=== PATIENT | female | born 1945 | race Caucasian/White ===

== ENCOUNTER 2019-10-08 13:59 | Outpatient (RCR) | payer MEDICARE ==
[~2019-10-08 13:59] MED LIST: CLOTRIMAZOLE/BETAMETHASONE 45 GM CR TP ONE
[2019-10-08] MEDS ORDERED: LIDOCAINE VISC 2% SOLN 15 ML UDC ONE (15:26)
[2019-10-08] MEDS ORDERED: CLOTRIMAZOLE/BETAMETHASONE 45 GM CR TP ONE (15:26)
[2019-10-08] MEDS ORDERED: MINERAL OIL/PETROLAT/GLYCERI 6OZ BTL ONE (15:26)
== END 2019-10-18 ==
LOC: WCC 13:59
PROVIDERS: ATTEND Family Medicine
DX: I87.331 Chronic venous hypertension (idiopathic) with ulcer and inflammation of right lower extremity (principal); L97.218 Non-pressure chronic ulcer of right calf with other specified severity; L03.119 Cellulitis of unspecified part of limb; R60.0 Localized edema; B96.89 Other specified bacterial agents as the cause of diseases classified elsewhere; J44.9 Chronic obstructive pulmonary disease, unspecified; Z85.3 Personal history of malignant neoplasm of breast

== ENCOUNTER 2019-11-12 14:45 | Outpatient (RCR) | payer MEDICARE ==
[~2019-11-12 14:45] MED LIST changes: +COLLAGENASE OINTMENT 30 GM TUBE ONE; +LIDOCAINE VISC 2% SOLN 15 ML UDC ONE; +LIDOCAINE/PRILOCAINE 2.5-2.5% KIT ONE; +MUPIROCIN 2% OINT 22 GM TUBE ONE
[2019-11-21] MEDS ORDERED: MUPIROCIN 2% OINT 22 GM TUBE ONE (13:49)
[2019-11-21] MEDS ORDERED: LIDOCAINE VISC 2% SOLN 15 ML UDC ONE (13:49)
== END 2019-11-18 ==
LOC: WCC 14:45
PROVIDERS: ATTEND Family Medicine
DX: I87.331 Chronic venous hypertension (idiopathic) with ulcer and inflammation of right lower extremity (principal); I87.332 Chronic venous hypertension (idiopathic) with ulcer and inflammation of left lower extremity; L97.218 Non-pressure chronic ulcer of right calf with other specified severity; L97.821 Non-pressure chronic ulcer of other part of left lower leg limited to breakdown of skin; L03.119 Cellulitis of unspecified part of limb; R60.0 Localized edema; J44.9 Chronic obstructive pulmonary disease, unspecified; B96.89 Other specified bacterial agents as the cause of diseases classified elsewhere; Z85.3 Personal history of malignant neoplasm of breast

== ENCOUNTER 2019-11-21 14:33 | Outpatient (RCR) | payer MEDICARE | END 2019-12-18 | LOC: WCC 14:33 | PROVIDERS: ATTEND Family Medicine | DX: I87.331 Chronic venous hypertension (idiopathic) with ulcer and inflammation of right lower extremity (principal); I87.332 Chronic venous hypertension (idiopathic) with ulcer and inflammation of left lower extremity; L03.119 Cellulitis of unspecified part of limb; L97.821 Non-pressure chronic ulcer of other part of left lower leg limited to breakdown of skin; L97.218 Non-pressure chronic ulcer of right calf with other specified severity; R60.0 Localized edema; B96.89 Other specified bacterial agents as the cause of diseases classified elsewhere; J44.9 Chronic obstructive pulmonary disease, unspecified; Z85.3 Personal history of malignant neoplasm of breast ==

== ENCOUNTER 2019-11-24 12:31 | Inpatient (IN) | payer MEDICARE ==
[~2019-11-24] VITALS: Ht 154.9 cm; Wt 83.5 kg
--- OUTSIDE RECORDS SUMMARY | 2019-11-24 12:34 | XMS REPORT ---
Author Author [facility] Address Unknown Phone Unavailable Care Team Providers [facility] Name Role Phone Unavailable Unavailable Payers Payer Name Policy Type Policy Number Effective Date Expiration Date Problems This patient has no known problems. Allergies, Adverse Reactions, Alerts Allergy Name Allergy Type Status Severity Reaction(s) Onset Date Inactive Date Treating Clinician Comments No Known Allergies DA Active U 2019-09-05 00:00:00 No Known Allergies DA Active U 2019-07-11 00:00:00 No Known Allergies DA Active U 2015-10-07 00:00:00 Medications This patient has no known medications. Results Test Description Test Time Test Comments Text Results Atomic Results Result Comments - XR CHEST 1 V 2019-09-08 09:58:00 FAX: Stone Flowers III [phone] [place]: St: REG FAX: Latoya Cruz MD [phone] Name: QI BALL CONSUELO [facility] : 1945 Age/S: 74/F [address] [place] [address] Unit #: [id number] Loc: [place] [address] Phys: Latoya Umaña MD Acct: [id number] Dis Date: Status: REG [facility]ONE #: [phone] Exam Date: 09/08/2019 09 FAX #: [phone] Reason: port placement EXAMS: CPT CODE: [id number] XR CHEST 1 V 65846 Portable chest performed September 08, 2019 0851 hours. COMPARISON: September 05, 2019. CLINICAL HISTORY: port placement. DISCUSSION: Single portable chest is submitted. Study is rotated. Right IJ Port-A-Cath is present with the tip over the cavoatrial junction.. Cardiothymic silhouette is normal in size. Density is seen projected over the left lower lobe, likely related to patient's chest wall disease. Given the limitations of the study, the lungs appear clear of acute process. Chronic changes are seen in the left humeral head, compatible with prior trauma IMPRESSION: 1. Right IJ Port-A-Cath is present with the tip over the cavoatrial junction. 2. Density seen projected over the left lower chest wall, likely related to patient's known chest wall disease. 3. Chronic changes in the left shoulder at 0947 Reported and signed by: Georgiana Ricks M.D. CC: Stone Riggs III, MD; In Elvia Umaña Technologist: Samara Jacques RT(R) Trnscrd Date/Time/By: 09/08/2019 (3850) : By: RainerNMG Orig Print D/T: S: 09/08/2019 (1862) PAGE 1 Signed Report - XR FLUOROSCOPY 0-60 MIN 2019-09-08 09:00:00 FAX: Stone Flowers III [phone] [place]: St: REG FAX: Latoya Cruz MD [phone] Name: QI BALL [facility] Breana Joseph : 1945 Age/S: 74/F [address] [place] [address] Unit #: [id number] Loc: [place] [address] Phys: Latoya Umaña MD Acct: [id number] Dis Date: Status: REG [facility] [place] PHONE #: [phone] Exam Date: 09/08/2019813 FAX #: [phone] Reason: LT BREAST CANCER EXAMS: CPT CODE: [id number] XR FLUOROSCOPY 0-60 MIN 81561 Intraprocedural fluoroscopy was provided by the Department of Radiology. Any images obtained were interpreted by the Surgeon intraoperatively. Total estimated active fluoroscopy time was approximately 1.6 seconds. Number of images: 2. Dose (Air Kerma): 0.14 mGy SL: [id number] at 0900 Reported and signed by: Jeramy Negron M.D. CC: Stone Riggs III, MD; In Elvia Umaña Techno logist: RT Roxana(R) Trnscrd Date/Time/By: 09/08/2019 (09) : By: [email or web address] Orig Print D/T: S: 09/08/2019 (0903) PAGE 1 Signed Report DRUGS OF ABUSE SCREEN 2019-09-05 15:46:00 URN COCAINE (test code=COCAURN) NEGATIVE NEGATIVE URN CANNABINOIDS (test code=CANNABURN) NEGATIVE NEGATIVE URN AMPHETAMINE (test code=AMPHETURN) NEGATIVE NEGATIVE URN BARBITURATE (test code=BARBITURN) NEGATIVE NEGATIVE URN BENZODIAZEPINE (test code=BENZOURN) NEGATIVE NEGATIVE Cut-off value:200 ng/mL URN OPIATES (test code=OPIATURN) NEGATIVE NEGATIVE Cut-off value:2000 ng/mL URN PHENCYCLIDINE (PCP) (test code=PHENCURN) NEGATIVE NEGATIVE Cutoffs:Barbiturates 200 ng/mLBenzodiazepines 200 ng/mLTHC Cannabinoids 50 ng/mLOpiates(Morphine) 2000 ng/mLAmphetamine 1000 ng/mLCocaine 300 ng/mLPCP phencyclidine 25 ng/mL Unconfirmed screening results shouldnot be used for non-medical purposes. - XR CHEST 2 [id number] 15:06:00 FAX: Stone Flowers III [phone] [place]: St: PRE FAX: Y LeeroyLatoya Gan MD [phone] Name: QI BALL [facility] : 1945 Age/S: 74/F [address] [place] [address] Blvd Unit #: [id number] Loc: [place] [address] Phys: Yo,Latoya Gan MD Acct: [id number] Dis Date: Status: PRE [facility] PHONE #: [phone] Exam Date: 09/05/2019 1425 FAX #: [phone] Reason: PRE-OP PORT PLACEMENT EXAMS: CPT CODE: [id number] XR CHEST 2 V 93008 EXAM: PA and lateral chest. EXAM DATE: September 05, 2019 CLINICAL HISTORY: PRE-OP PORT PLACEMENT COMPARISON: October 07, 2015 at 1712 hours Heart size is stable compared to the prior exam and is grossly within normal limits. Atherosclerotic calcifications and tortuosity of the intrathoracic aorta is identified.. Mild increased interstitial markings appear stable. .Kyphosis is identified. There is irregularity in the left humeral head palpable with previously identified fracture. IMPRESSION: No acute abnormality identified. at 1504 Reported and signed by: Jessica Dawson M.D. CC: Stone Riggs III, MD; In Elvia Yo Technologist: RT Beatriz(R) Trnscrd Date/Time/By: 08/20 (8279) : By: José Orig Print D/T: S: 09/05/2019 (0060) PAGE 1 Signed Report COMPREHENSIVE METABOLIC [id number] 14:26:00* Test Item Value Reference Range Comments SODIUM (test code=NA) 138 mEq/L 134-147 POTASSIUM (test code=K) 4.5 mEq/L 3.4-5.0 CHLORIDE (test code=CL) 101 mEq/L 100-108 CARBON DIOXIDE (test code=CO2) 32 mEq/L 21-33 ANION GAP (test code=GAP) 10 0-20 GLUCOSE (test code=GLU) 84 mg/dL 70-110 BLOOD UREA NITROGEN (test code=BUN) 20 mg/dL 7-18 GLOMERULAR FILTRATION RATE (test code=GFR) 61.5 70-80 Units of measure=ml/min/1.73 m2 CREATININE (test code=CREAT) 0.9 mg/dL 0.6-1.3 TOTAL PROTEIN (test code=PROT) 7.5 g/dL 6.4-8.2 ALBUMIN (test code=ALB) 3.60 g/dL 3.4-5.0 CALCIUM (test code=CA) 9.0 mg/dL 8.0-10.5 BILIRUBIN TOTAL (test code=BILT) 0.3 MG/DL <1.5 SGOT/AST (test code=AST) 22 IUnit/L 15-37 SGPT/ALT (test code=ALT) 19 IUnit/L 15-65 ALKALINE PHOSPHATASE TOTAL (test code=ALKP) 91 IUnit/L 20-125 CBC W/AUTO [id number] 14:11:00* Test Item Value Reference Range Comments WHITE BLOOD CELL (test code=WBC) 8.17 x10 3/uL 4.5-11.0 RED BLOOD CELL (test code=RBC) 4.55 x10 6/uL 3.54-5.02 HEMOGLOBIN (test code=HGB) 13.9 g/dL 11.0-15.0 HEMATOCRIT (test code=HCT) 42.9 % 33.0-45.0 MEAN CELL VOLUME (test code=MCV) 94.3 fL 81.0-99.0 MEAN CELL HGB (test code=MCH) 30.5 pg 27.0-33.0 MEAN CELL HGB CONCETRATION (test code=MCHC) 32.4 g/dL 33.0-37.0 RED CELL DISTRIBUTION WIDTH CV (test code=RDW) 14.6 % 11.5-14.5 RED CELL DISTRIBUTION WIDTH SD (test code=RDW-SD) 50.8 fL 37.0-54.0 PLATELET COUNT (test code=PLT) 369 x10 3/uL 150-400 MEAN PLATELET VOLUME (test code=MPV) 9.9 fL 7.0-9.0 NEUTROPHIL % (test code=NT%) 78.0 % 56.0-77.0 IMMATURE GRANULOCYTE % (test code=IG%) 0.2 % 0.0-2.0 LYMPHOCYTE % (test code=LY%) 10.3 % 14.0-32.0 MONOCYTE % (test code=MO%) 9.3 % 4.8-9.0 EOSINOPHIL % (test code=EO%) 1.2 % 0.3-3.7 BASOPHIL % (test code=BA%) 1.0 % 0.0-2.0 NUCLEATED RBC % (test code=NRBC%) 0.0 % 0-0 NEUTROPHIL # (test code=NT#) 6.37 x10 3/uL 2.0-7.6 IMMATURE GRANULOCYTE # (test code=IG#) 0.02 x10 3/uL 0.00-0.03 LYMPHOCYTE # (test code=LY#) 0.84 x10 3/uL 1.0-3.8 MONOCYTE # (test code=MO#) 0.76 x10 3/uL 0.1-0.8 EOSINOPHIL # (test code=EO#) 0.10 x10 3/uL 0.0-0.2 BASOPHIL # (test code=BA#) 0.08 x10 3/uL 0.0-0.2 NUCLEATED RBC # (test code=NRBC#) 0.00 x10 3/uL 0.0-0.1 MANUAL DIFF REQUIRED (test code=MDIFF) NO SURGICAL [id number] 16:50:00 RUN DATE: 07/18/19 [facility] *LIVE* PAGE 1 RUN TIME: 1650 Specimen Inqui ry RUN USER: INTERFACE PATIENT: QI BALL ACCT #: G [id number] LOC: [place] U #: [id number] AGE/SX: 74/F ROOM: RE07/14/19[facility] DR: Hair Warren MD : [birth year] BED: DIS: STATUS: [place] [facility] TLOC: SPEC #: [id number] RECD: 07/14/19 STATUS: LAMAR BUCK #: [id number] JERRI: 07/14/19 [facility] DR: Hair Warren MD ENTERED: 07/17/19 SP TYPE: SURG SPEC OTHR DR: Stone Riggs III, MD ORDERED: GM LEVEL 4 CODES: [id number] - SOFT TISSUES, N COPIES TO: Hair Warren MD [address] [place] [address] [place] [address] [place] [address] PROCEDURES: GM LEVEL 4 (Incomplete) TISSUES: 1. SOFT TISSUES, NOS - Soft tissue, left chest wall, TNB FINAL DIAGNOSIS Soft tissue, left chest wall, TNB: Adenocarcinoma most consistent with primary from [facility]. GROSS AND MICROSCOPIC INTRAOPERATIVE CONSULT (DR): Adequate for c ytologic evaluation. GROSS EXAMINATION: Received are 3 direct smears for evaluation for adequacy during the operative procedure. They are determin ed to be adequate for cytologic evaluation. Also received is residual mat erial that measures up to 1.1 cm in length and 0.1 cm in diameter. Entirely submitted. MICROSCOPIC EXAMINATION: The biopsy of the left chest wall reveal replacement by carcinoma. Immunostains for CK7, ER, and NM are positive. Immunostains for CDX 2, GCDFP, CK20, and TTF1 are negative. (W hen special stains have been reviewed, the appropriate positive/negative con trols have been reviewed and are appropriately positive/negative). These muñiz ges are most consistent with a primary carcinoma from breast. CONTINUED ON NEXT PAGE --------- ---RUN DATE: 07/18/19 [facility] *LIVE* PAGE 2 RUN TIME: 1650 Specimen Inquiry RUN USER: INTERFACE SPEC #: [id number] PATIENT: QI BALL CONSUELO #[id number] (Continued) POST-OP DIAGNOSIS Met astatic breast cancer PRE-OP DIAGNOSIS Metastatic breast cancer REVIEWED BY: Signed SIGNATURE ON FILE Brittney Yang MD 07/18/19 1650 END OF REPORT SURGICAL SPECIMENS 2019-07-18 16:50:00 RUN DATE: 08/01/19 [facility] *LIVE* PAGE 1 RUN TIME: 1618 Specimen Inqui ry RUN USER: INTERFACE PATIENT: QI BALL CONSUELO ACCT #: G [id number] LOC: TaneshaToñaALEXANDROU U #: [id number] AGE/SX: 74/F ROOM: RE07/14/19REG DR: Hair Warren MD : [birth year] BED: DIS: STATUS: [facility] TLOC: SPEC #: [id number] RECD: 07/14/19 STATUS: LAMAR BUCK #: [id number] JERRI: 07/14/[address] [facility] [address]: Hair Warren MD ENTERED: 07/17/19 SP TYPE: SURG SPEC OTHR DR: Stone Riggs III, MD ORDERED: GM LEVEL 4 CODES: [id number] - SOFT TISSUES, N COPIES TO: Hair Warren MD [address] [place] [address] [place] [address] [place] [address] [phone] PROCEDURES: GM LEVEL 4 (Incomplete) TISSUES: 1. SOFT TISSUES, NOS - Soft tissue, left chest wall, TNB ADDENDUM FINDINGS Addendum #1 Entered: 07/29/19 ER: POSITIVE Tumor Stained: 100% Intensity: 3+ Faye Score: 8 PgR: POSITIVE Tumor Stained: 21% Intensity: 1+ Faye Score: 4 HER2 Breast: EQUIVOCAL Score: 2+ Percentage of Cells with Uniform Intense Complete Membrane Stainin% , FISH PENDING. Ki67: HIGH Tumor Stained: 80% Intensity: 3+ p53: POSITIVE Tumor Stained: 98% Intensity: 1+ REFERENCE RANGES: ER > 1%-Positive; < 1%-Negative. NM > 1%-Positive; < 1%- Negative. Ki-67 < 10%-Low proliferative index; >=10% and <=20%-Intermediate proliferative index; > 20%-High proliferative index. p53 < 10%-Negative; > =10%-Positive. Her2/alanna 1-9-Gawcmqfp; 0-otlvrsvog-felomi FISH study; 3+-Posit chalo. These tests were performed by IHC in conjunction with the [employer]ope[employer]/APERIO. The material was formalin fixed (6-72 hours), paraffin CONTINUED ON NEXT PAGE RUN DATE: 08/01/19 [facility] *LIVE* PAGE 2 RUN TIME: 1618 Specimen Inquiry RUN USER: INTERFACE SPEC #: [id number] PATIENT: QI BALL CONSUELO #[id number] (Continued)--------- --- ADDENDUM FINDINGS (Continued) embedded. While some antibo dies have not been approved by the FDA, clearance/approval is not conrad frederick. These antibodies are well documented and clinically accepted prognostic indicators. Known positive and negative control tissue shows appropriate stai ren. Above prognostic marker results to be used in context with clinical/path ological findings. The [employer] of [place] [employer] (CAP) and the [place] Society of Clinical Oncology (ASCO) joint guideline on testing for Her2/Alanna status in invasive breast cancer is used to determine if FISH studies are n ecessary. Please see outside consultation report for clone/intended use, vendor, staining pattern, and QC status. Addendum Signed SIGNATURE ON FILE Aarti Yang MD 08/01/19 1618 FINAL DIAGNOSIS Soft tissue, le ft chest wall, TNB: Adenocarcinoma most consistent with primary from breast. GROSS AND MICROSCOPIC INTRAOPERATIVE CONSULT (): Adequate for cytolo gic evaluation. GROSS EXAMINATION: Received are 3 direct smears for e valuation for adequacy during the operative procedure. They are determined to be adequate for cytologic evaluation. Also received is residual material that measures up to 1.1 cm in length and 0.1 cm in diameter. Entirely submi tted. MICROSCOPIC EXAMINATION: The biopsy of the left chest wall rev eal replacement by carcinoma. Immunostains for CK7, ER, and NM are p ositive. Immunostains for CDX 2, GCDFP, CK20, and TTF1 are negative. (When s pecial stains have been reviewed, the appropriate positive/negative controls have been reviewed and are appropriately positive/negative). These changes a re most consistent with a primary carcinoma from breast. POST-OP DIAGNOSIS Metastatic breast cancer PRE-OP DIAGNOSIS Metastatic breast cancer CONTINUED ON NEXT PAGE RUN DATE: 08/01/19 [facility] *LIVE* PAGE 3 RUN TIME: 1618 S terry Inquiry RUN USER: INTERFACE SPEC #: [id number] PATIENT: QI BALL CONSUELO #[id number] (Continued) REVIEWED BY: Signed SIGNATURE ON FILE Brittney Yang MD 07/18/19 1650 END OF REPORT SURGICAL [id number] 16:50:00 RUN DATE: 08/05/19 [facility] *LIVE* PAGE 1 RUN TIME: 1040 Specimen Inqui ry RUN USER: INTERFACE PATIENT: QI BALL ACCT #: G [id number] LOC: [place] U #: [id number] AGE/SX: 74/F ROOM: RE07/14/19REG DR: Hair Warren MD : [birth year] BED: DIS: STATUS: [facility]LOC: SPEC #: [id number] RECD: 07/14/19 STATUS: LAMAR CIELO #: [id number] JERRI: 07/14/[address] [facility] [address]: Hair Warren MD ENTERED: 07/17/19 SP TYPE: SURG SPEC OTHR DR: Stone Riggs III, MD ORDERED: GM LEVEL 4 CODES: [id number] - SOFT TISSUES, N COPIES TO: Hair Warren MD [address] [place] [address] [place] [address] [place] [address] PROCEDURES: GM LEVEL 4 (Incomplete) TISSUES: 1. SOFT TISSUES, NOS - Soft tissue, left chest wall, TNB ADDENDUM FINDINGS Addendum #2 Entered: 08/04/19-2823 FISH FOR HER2: Positive. See outside report from [employer] for complete details. Addendum Signed SIGNATURE ON FILE Brittney Cortes MD 08/05/19 1040 Addendum #1 Entered: 07/29/19-163 ER: POSITIVE Tumor Stained: 100% Intensity: 3+ Faye Score: 8 PgR: POSITIVE Tumor Stained: 21% Intensity: 1+ Faye Score: 4 HER2 Breast: EQUIVOCAL Score: 2+ Percentage of Cells with Uniform Intense Complete Membrane Stainin% , FISH PENDING. Ki67: HIGH Tumor Stained: 80% Intensity: 3+ CONTINUED ON NEXT PAGE RUN DATE: 9 [facility] *LIVE* PAGE 2 RUN T JALEESA: 1040 Specimen Inquiry RUN USE R: INTERFACE --------- ---SPEC #: [id number] PATIENT: LIZZYHETALQIIVETTE CORDERO #[id number] (Continued) ADDENDUM FINDINGS (Continued) p53: PO SITIVE Tumor Stained: 98% Intensity: 1+ REFERENCE RAN GES: ER > 1%-Positive; < 1%-Negative. NM > 1%-Positive; < 1%-Negative. Ki- 67 < 10%-Low proliferative index; >=10% and <=20%-Intermediate proliferative index; > 20%-High proliferative index. p53 < 10%-Negative; >=10%-Positive. Her2/alanna 8-5-Fwezrzpg; 2-mgetvzxit-burtcw FISH study; 3+-Positive. These tests were performed by IHC in conjunction with the [employer]/APERIO. The material was formalin fixed (6-72 hours), paraffin embedded. While some antibodies have not been approved by the FDA, clearance/approval is not mandated. These antibodies are well documented and clinically accepted prognostic ind icators. Known positive and negative control tissue shows appropriate staining . Above prognostic marker results to be used in context with clinical/patholog ical findings. The College of [employer] Pathologists (CAP) and the [place] [employer] ciety of Clinical Oncology (ASCO) joint guideline on testing for Her2/Alanna sta tus in invasive breast cancer is used to determine if FISH studies are neces connie. Please see outside consultation report for clone/intended use, vend or, staining pattern, and QC status. Addendum Signed SIGNATURE ON FILE Brittney Yang MD 08/01/19 1618 FINAL DIAGNOSIS Soft tissue, left c hest wall, TNB: Adenocarcinoma most consistent with primary from breast. GROSS AND MICROSCOPIC INTRAOPERATIVE CONSULT (): Adequate for cytologic evaluation. GROSS EXAMINATION: Received are 3 direct smears for evalu ation for adequacy during the operative procedure. They are determined to be adequate for cytologic evaluation. Also received is residual material marcus t measures up to 1.1 cm in length and 0.1 cm in diameter. Entirely submitted . MICROSCOPIC EXAMINATION: The biopsy of the left chest wall reveal replacement by carcinoma. Immunostains for CK7, ER, and NM are posit chalo. Immunostains for CDX 2, GCDFP, CK20, and TTF1 are negative. (When speci al stains have been reviewed, the appropriate positive/negative controls hav e been reviewed and are appropriately positive/negative). These changes are most consistent with a primary carcinoma from breast. CONTINUED ON NEXT PAGE RUN DATE : 08/05/19 [facility] *LIVE* PAGE 3 RUN TIME: 1040 Specimen Inquiry RUN USER: INTERFACE SPEC #: [id number] PATIENT: QI BALL CONSUELO #G [id number] (Continued) POST-OP DIAGNOSIS Metastatic gail ast cancer PRE-OP DIAGNOSIS Metastatic breast cancer REVIEW ED BY: Signed SIGNATURE ON FILE Brittney Yang MD 07/18/19 1650 END OF REPORT - [facility] GUID [facility] (Biopsy/Asp) 2019-07-14 14:49:00 Name: QI BALL [facility] : 1945 Age/S: 74 / F [address] [place] [address] Unit #: [id number] Loc: [place] [address] Phys: Hair Warren MD Acct: [id number] Dis Date: Status: REG [facility] PHONE #: [phone] Exam Date: 07/14/2019 1301 FAX #: [phone] Reason: METASTATIC BREAST CANCER EXAMS: CPT CODE: [id number] CT [facility]UID [facility] (Biopsy/Asp) [address] PROCEDURE: CT-guided left chest wall mass biopsy. INDICATION: Breast cancer with hypermetabolic left lower chest wall mass. COMPARISON: PET/CT dated 06/24/2019. TECHNICAL: CT imaging performed at this location utilizes radiation dose optimization techniques which include one or more of the following: -Automated exposure control -Adjustment of the mA and/or kV according to patient size - Use of iterative reconstruction technique CT Radiation Dose DLP 599.1 mGy- cm MODERATE SEDATION: Moderate sedation was not administered. The patient was monitored by nurse using automated blood pressure, EKG and pulse oximetry. The moderate sedation record is permanently stored in the hospital information system. The personal supervised moderate sedation time was 0 minutes. Medications administered: 0 mg of IV Versed and 0 micrograms of IV Fentanyl. PROCEDURE: The procedure, risks, benefits, and alternatives were discussed. Informed consent was obtained. Timeout was performed prior to the procedure. Preliminary CT images were acquired. The left lower lateral chest wall was prepped and draped in usual sterile fashion. Local anesthesia achieved with 1% lidocaine. Under intermittent CT fluoroscopic guidance, a 17-gauge coaxial needle was advanced into the identified left chest wall mass. Through the coaxial needle, 3 x 18-gauge by 2 cm core biopsy specimens were acquired. Biopsy specimens were submitted to pathology and were deemed adequate. Needle was removed and final CT images were acquired. A sterile dressing was applied. FINDINGS: Preliminary CT images show soft tissue thickening of the left inferolateral chest wall corresponding with hypermetabolic soft tissue PAGE 1 Signed Report (CONTINUED) Name: QI BALL [facility] : 1945 Age/S: 74 / F [address] [place] [address] Unit #: [id number] Loc: [place] [address] Phys: Hair Warren MD Acct: [id number] Dis Date: Status: REG [facility] PHONE #: [phone] Exam Date: 07/14/2019 1309 FAX #: [phone] Reason: METASTATIC BREAST CANCER EXAMS: CPT CODE: [id number] [facility] (Biopsy/Asp) [address]25[address] <Continued> lesion from outside PET. Subsequent CT images show biopsy needle being advanced into the lesion. Final CT images show no pneumothorax or other complication. A few locules of gas are seen with in the soft tissue lesion. IMPRESSION: Status post CT-gu ided core biopsy of hypermetabolic left inferolateral chest wall soft ti ssue lesion. at 1449 Reported and signed by: Mike Castro M.D. CC: Hair Warren MD; Stone Riggs III, MD Technologist:Rl tian RT(R) CTDI: DLP: Trnscb Date/Time: 07/14/2019 (1449) t .SDR.KM28 Orig Print D/T: S: 07/14/2019 (0406) PAGE 2 Signed Report CBC W/AUTO [id number] 10:04:00* Test Item Value Reference Range Comments WHITE BLOOD CELL (test code=WBC) 12.72 x10 3/uL 4.5-11.0 RED BLOOD CELL (test code=RBC) 4.49 x10 6/uL 3.54-5.02 HEMOGLOBIN (test code=HGB) 13.9 g/dL 11.0-15.0 HEMATOCRIT (test code=HCT) 44.1 % 33.0-45.0 MEAN CELL VOLUME (test code=MCV) 98.2 fL 81.0-99.0 MEAN CELL HGB (test code=MCH) 31.0 pg 27.0-33.0 MEAN CELL HGB CONCETRATION (test code=MCHC) 31.5 g/dL 33.0-37.0 RED CELL DISTRIBUTION WIDTH CV (test code=RDW) 13.8 % 11.5-14.5 RED CELL DISTRIBUTION WIDTH SD (test code=RDW-SD) 50.1 fL 37.0-54.0 PLATELET COUNT (test code=PLT) 335 x10 3/uL 150-400 MEAN PLATELET VOLUME (test code=MPV) 10.1 fL 7.0-9.0 NEUTROPHIL % (test code=NT%) 84.8 % 56.0-77.0 IMMATURE GRANULOCYTE % (test code=IG%) 0.4 % 0.0-2.0 LYMPHOCYTE % (test code=LY%) 5.7 % 14.0-32.0 MONOCYTE % (test code=MO%) 8.0 % 4.8-9.0 EOSINOPHIL % (test code=EO%) 0.6 % 0.3-3.7 BASOPHIL % (test code=BA%) 0.5 % 0.0-2.0 NUCLEATED RBC % (test code=NRBC%) 0.0 % 0-0 NEUTROPHIL # (test code=NT#) 10.80 x10 3/uL 2.0-7.6 IMMATURE GRANULOCYTE # (test code=IG#) 0.05 x10 3/uL 0.00-0.03 LYMPHOCYTE # (test code=LY#) 0.72 x10 3/uL 1.0-3.8 MONOCYTE # (test code=MO#) 1.02 x10 3/uL 0.1-0.8 EOSINOPHIL # (test code=EO#) 0.07 x10 3/uL 0.0-0.2 BASOPHIL # (test code=BA#) 0.06 x10 3/uL 0.0-0.2 NUCLEATED RBC # (test code=NRBC#) 0.00 x10 3/uL 0.0-0.1 MANUAL DIFF REQUIRED (test code=MDIFF) NO PROTHROMBIN [id number] 07:40:00* Test Item Value Reference Range Comments PROTHROMBIN TIME PATIENT (test code=PTP) 11.2 SECONDS 9.3-12.9 INTERNATIONAL NORMAL RATIO (test code=INR) 1.0 0.8-1.2 TARGET INR BY INDICATION Indication INR1. Prophylaxis of venous thrombosis 2.0 - 3.0 (orthopedic surgery), Prophylaxis of venous thrombosis (other than high-risk surgery), Treatment of Deep Vein Thrombosis/Pulmonary Embolism, Prevention of systemic embolism - Tissue heart valves, Acute Myocardial Infarction (to prevent systemic embolism), Valvular heart disease, Atrial Fibrillation, Bileaflet mechanical valve in aortic position.2. Mechanical prosthetic valves (high risk), 2.5 - 3.5 Presence of Lupus Anticoagulant or Antiphospholipid Antibodies, Prevention of systemic embolism - Acute Myocardial Infarction (to prevent recurrent infarct). THROMBOPLASTIN TIME [id number] 07:40:00* Test Item Value Reference Range Comments THROMBOPLASTIN TIME PARTIAL (test code=PTT) 27.3 Seconds 25.0-39.5 Therapeutic Range: 50.4 - 88.3 Seconds Effective 12/03/2018 - MRI BRAIN WO/W [id number] 15:12:00 FAX: Hair Tejeda MD [phone] [place]: St: REG Name: QI VILLARREAL [facility] : [birth year] Age/S: 74/F [address] [place] [address] Unit #: [id number] Loc: [place] [address] Phys: Hair Warren MD Acct: [id number] Dis Date: Status: REG CLI PHONE #: [phone] Exam Date: 06/23/2019 1341 FAX #: [phone] Reason: C50.412/C50.919 BREAST CA EXAMS: CPT CODE: [id number] MRI BRAIN WO/W CONT [id number] Study: - MRI BRAIN WO/W CONT 06/23 12:16 PM Patient Name: QI BALL MR: [id number] : 1945; Age: 74 years y/o Female Ordering Physician: Hair Warren MD Clinical Indication: C50.412/C50.919 BREAST CA C omparison: None TECHNIQUE: TECHNIQUE: Multiplanar precontrast and postcontrast MRI of the brain was performed on a 1.5 Tracy magnet. Contrast: Dotarem 18 mL FINDINGS: BRAIN PARE NCHYMA: General: The brain volume and ventricle size are appropria te for age. Focal DWI hyperintensity with equivocal ADC signal in the rig ht occipital lobe (series 4 image 17). Scattered FLAIR hyperintensit ies in the supratentorial white matter likely represent chronic small vess el ischemic changes. Ventricles: Normal size and appearance. Enhancement: No abnormal enhancement. Acute Findings: No evidence of acute intracranial hemorrhage, mass, mass effect, midline love ft, or extra-axial fluid collection. Diffusion Weighted Images: No evidence of restricted diffusion to suggest acute or subacute ischemia. Gradient Images: No abnormal hypointense signal to suggest old hemorrhage. Midline Structures: An empty sella is present. The remaining midline structures are normal. VASCULATURE: Arterial: The major intracranial arterial flow voids are present. Jm ous: The dural venous sinus flow voids are grossly normal. PAGE 1 Signed Report (CONTINUED) FAX: Hair Tejeda MD [phone] [place]: St: REG Name: QI BALL [facility] : 1945 Age/S: 74/F [address] [place] [address] Blvd Unit #: [id number] Loc: G.MRI Roberto Carlos ruelas, [place] [address] Phys: Hair Warren MD Acct: [id number] Dis Date: Status: REG CLI PHONE #: [phone] Exam Date: 11/2018 1341 FAX #: [phone] Reason: C50.412/C50.9 19 BREAST CA EXAMS: CPT CODE: [id number] MRI BRAIN WO/W CONT 7 0553 <Continued> PARANASAL SINUSES: The visualized portions of the paranasal sinuses are clear. MASTOIDS: Clear. SOFT TISSUES AND ORBITS: The visualized portions are normal. IMPRESSION: 1. No acute stroke, hemorrhage, mass, or mass effect. 2. 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 3. Mild chronic small vessel ischemic changes in the supratentorial white matter. SL: [id number] at 1512 Reported and signed by: Saman Byers M.D. CC: Hair Warren MD Technologist: RT Emperatriz(Jacquelyn)(MR) Trnscrd Date/Time/By: 06/23/2019 (442) : By: [email or web address] Orig Print D/T: S: 06/23/2019 (1092) PAGE 2 Signed Report SURGICAL [id number] 08:18:00 RUN DATE: 05/29/19 [place] *LIVE* PAGE 1 RUN TIME: 817 Specimen Inqui ry RUN USER: INTERFACE PATIENT: QI BALL ACCT #: G [id number] LOC: [place] Van #: [id number] AGE/SX: 74/F ROOM: RE05/22/19REG DR: Leodan Sweeney MD : 47 BED: DIS: STATUS: PRE REF TLOC: SPEC #: [id number] RECD: 05/23/19 STATUS: [facility] #: [id number] JERRI: 05/23/[address] [facility] [address]: Leodan Sweeney MD ENTERED: 05/28/19 SP TYPE: SURG SPEC OTHR DR: No Kylee lizett or Family PhysicianORDERED: GM LEVEL 4 CODES: [id number] - BREAST, NOS [id number] - LYMPH NODE, NOS COPIES TO: No Primary or Family Physician Leodan Sweeney MD [address] [place] [address] PROCEDURE S: GM LEVEL 4 (Incomplete) TISSUES: 1. BREAST, NOS - Breast, left, upp er outer quadrant, core 2. LYMPH NODE, NOS - Lymph node, left axilla, core bx. FINAL DIAGNOSIS Breast, left, upper outer quadrant, core bx.: Infiltrating ductal carcinoma with lobular features, [place] grade 2, 1.9 cm; with lymphovascular invasion; ancillary studies to follow. Ly mph node, left axilla, core bx.: Metastatic adenocarcinoma, morphologically c onsistent with breast primary; ancillary studies to follow. GROSS AND M ICROSCOPIC GROSS EXAMINATION: Received is/are the specimen/s designated with the appropriate dimensions and block designation: 1. Breast, left, upper outer quadrant, core bx.: 2 segments of pink-real tissue, measuring up to 1.9 cm. in greatest dimension each (A). 2. Lymph node, left axilla, core bx.: 3 segments of pink-real tissue, measuring up to 0.9 cm. in greatest dimension each (B). MICR OSCOPIC EXAMINATION: The biopsy #1 reveals infiltrating ductal carcin chidi with lobular features that is characterized by infiltrating nests, c ords, single cell files, and atypical tubular structures in a CONTINUED ON NEXT PAGE RUN DATE: 05/29/19 [facility] *LIVE* PAGE 2 RUN TIME: 817 Specimen Inquiry RUN USER: INTERFACE SPEC #: [id number] PATIENT: QI BALL #[id number] (Continued) GROSS AND MICROSCOPIC (Continued) backgr ound of desmoplastic response. The neoplastic cells show moderate nuclear atypia with increased mitoses. The second b iopsy reveals infiltrating moderately differentiated adenocarcinoma with focal lymphoid cells. POST-OP JORGE GNOSIS Site I: ULTRACLIP, II: ULTRACLIP-wing PRE-OP DIAGNOSIS Prob ably malignant, advanced stage REVIEWED BY: Signed S IGNATURE ON FILE April Rodney MD 05/29/1918 ----- ------- KAUSHAL OF R JUSTINE SURGICAL [id number] 08:18:00 RUN DATE: 06/12/19 [facility] *LIVE* PAGE 1 RUN TIME: 814 Specimen Inqui ry RUN USER: INTERFACE PATIENT: QI BALL CONSUELO ACCT #: G [id number] LOC: [place] U #: [id number] AGE/SX: 74/F ROOM: RE05/22/19REG DR: Leodan Sweeney MD : 47 BED: DIS: STATUS: DEP REF TLOC: SPEC #: [id number] RECD: 05/23/19 STATUS: LAMAR REQ #: [id number] JERRI: 05/23/[address] [facility] [address]: Leodan Sweeney MD ENTERED: 05/28/19 SP TYPE: SURG SPEC OTHR DR: Syeda Kylee lizett or Family PhysicianORDERED: GM LEVEL 4 CODES: [id number] - BREAST, NOS [id number] - LYMPH NODE, NOS COPIES TO: No Primary or Family Physician Leodan Sweeney MD [address] [place] [address] PROCEDURE S: GM LEVEL 4 (Incomplete) TISSUES: 1. BREAST, NOS - Breast, left, upp er outer quadrant, core 2. LYMPH NODE, NOS - Lymph node, left axilla, core bx. ADDENDUM FINDINGS Addendum #1 Entered: [id number] (A) ER: POSITIVE Tumor Stained: 100%. Intensity: 3. Faye Score: 8. NM: POSITIVE Tumor Stai arthur: 13%. Intensity: 2. Faye Score: 5. Her2/alanna: Negative, score 1+. FISH: Indeterminate; Results show a verage HER2 copy number of >=4.0 and <6.0 signals per cell and a HER2/CEN17 ratio of <2.0. Per 2018 ASCO/CAP guidelines, these FISH findings require correlation with the concurrent HER2 IHC result for final interpretation. Performed by [employer]. Ki-67: High. Tumor Stained: 98%. Intensity: 3+. p53: Positive. Tumor Stained: 100%. Intensity: 3+. REFERENCE RANGES: ER > 1%-Positive; < 1%-Negative. NM > 1%- Positive; < 1%-Negative. Ki-67 < 10%-Low proliferative index; >=10% and < = CONTINUED ON NEXT PAGE RUN DATE: 06/12/19 [facility] *LIVE* PAGE 2 RUN TIME: 814 Specimen Inquiry RUN USER: INTERFACE SPEC #: [id number] PATIENT: QI BALL CONSUELO #[id number] (Continued)------ ------ ADDENDUM FINDINGS (Continued) 20%-Intermediate prolifer ative index; > 20%-High proliferative index. p53 < 10%-Negative; >=10%- Positive. Her2/alanna 1-0-Dnxkqpkr; 8-fcieennqw-wteppr FISH study; 3+-Positive. These tests were performed by IHC in conjunction with the [employer]. The material was formalin fixed (6-72 hours), paraffin embedded. While some antibodies have not been approved by the FDA, clearance/approval is not mandated. These antibodies are well documented and clinically accepted prognostic ind icators. Known positive and negative control tissue shows appropriate staining . Above prognostic marker results to be used in context with clinical/patholog ical findings. The College of [employer] (CAP) and the [place] So ciety of Clinical Oncology (ASCO) joint guideline on testing for Her2/Alanna sta tus in invasive breast cancer is used to determine if FISH studies are neces connie. Please see outside consultation report for clone/intended use, vend or, staining pattern, and QC status. (B) ER: POSITIVE Tumor Stained: 97%.Intensity: 3. Faye Score: 8. NM: POSITIVE Tumor Stained: 31%. Intensity: 3. Faye Score: 6. Her2/alanna: Negative, score 1+. FISH Results: Indeterminate; Results show average HER2 copy number of >=4.0 and <6.0 signals per cell and a HER2/CEN17 ratio of <2.0. Per 2018 ASCO/CAP guidelines, these FISH findings require correlation with the concurrent HER2 IHC result for final interpretation, Performed by [employer]. Ki-67: High. Tumor Stained: 48%. Intensity: 3+. p53: Positive. Tumor Stained: 94%. Intensity: 2+. REFERENCE RANGES: ER > 1%-Positive; < 1%-Negative. NM > 1%-Positive; < 1%-Negative. Ki-67 < 10%- Low proliferative index; >=10% and <=20%-Intermediate proliferative index; > 20%-High proliferative index. p53 < 10%-Negative; >=10%-Positive. Her2/alanna 4-6-Zhosibzg; 6-rzqlzvkhl-odxwro FISH study; 3+-Positive. These tests were performed by IHC in conjunction with the [employer]. The material was formalin fixed (6- 72 hours), paraffin embedded. While some antibodies have not been approved by the FDA, clearance/approval is not mandated. These antibodies are well documented and clinically accepted prognostic indicators. Known positive and negative control tissue shows appropriate staining. Above prognostic marker results to be used in context with clinical/pathological findings. The College of [employer] Pathologists (CAP) and the [place] Society of Clinical Oncology (ASCO) joint guideline on testing for Her2/Alanna status in invasive breast CONTINUED ON NEXT PAGE RUN DATE: 06/12/19 [facility] *LIVE* PAGE 3 RUN TIME: 814 Specimen Inquiry RUN USER: INTERFACE SPEC #: [id number] PATIENT: HETAL BALL CONSUELO #[id number] (Continued) ADDENDUM F INDINGS (Continued) cancer is used to determine if FISH studies are n ecessary. Please see outside consultation report for clone/intended use, vendor, staining pattern, and QC status. Addendum Signed SIGNATURE O N April Meraz MD 06/12/19 0814 KATHIE AL DIAGNOSIS Breast, left, upper outer quadrant, core bx.: Infiltrating ducta l carcinoma with lobular features, [place] grade 2, 1.9 cm; with lymphovas cular invasion; ancillary studies to follow. Lymph node, left axilla, c ore bx.: Metastatic adenocarcinoma, morphologically consistent with breast pr imary; ancillary studies to follow. GROSS AND MICROSCOPIC GROSS EXAM INATION: Received is/are the specimen/s designated with the appropriate dimensions and block designation: 1. Breast, left, upper outer quadrant, core bx.: 2 segments of pink-real tissue, measuring up to 1.9 cm. in greatest dimension each (A). 2. Lymph node, left ax illa, core bx.: 3 segments of pink-real tissue, measuring up to 0.9 cm. in greatest dimension each (B). MICROSCOPIC EXAMINATION: The biopsy #1 reveals infiltrating ductal carcinoma with lobular features that is characterized by infiltrating nests, cords, single cell files, and atypical tubular structures in a background of desmoplastic respons e. The neoplastic cells show moderate nuclear atypia with increased mitose s. The second biopsy reveals infiltrating m oderately differentiated adenocarcinoma with focal lymphoid cells. POST-OP DIAGNOSIS Site I: ULTRACLIP, II: ULTRACLIP-wing PRE-OP DIAGNOSIS Probably malignant, advanced sta ge CONTINUED ON NEXT PAGE RUN DATE: 06/12/19 [facility] *LIVE* PAGE 4 RUN TIME: 0815 Specimen Inquiry RUN USER: INTERFACE SPEC #: [id number] PATIENT: QI BALL CONSUELO #[id number] (Continued) REVIEWED BY: --------- --- Signed SIGNATURE ON FILE April Rodney MD 05/29/19 081 8 END OF REPORT SURGICAL [id number] 12:40:00 RUN DATE: 05/19/19 [facility] *LIVE* PAGE 1 RUN TIME: 1240 Specimen Inqui ry RUN USER: INTERFACE PATIENT: QI BALL ACCT #: G [id number] LOC: [facility] U #: [id number] AGE/SX: 74/F ROOM: RE05/07/19[facility] DR: Leodan Sweeney MD : 49 BED: DIS: STATUS: DEP CLI TLOC: SPEC #: [id number] RECD: 05/12/19 STATUS: LAMAR REQ #: [id number] JERRI: 05/12/[address]: Leodan Sweeney MD ENTERED: 05/14/19 SP TYPE: SURG SPEC OTHR DR: Syeda [facility] Physician ORDERED: GM LEVEL 4 CODES: [id number] - BREAST, NOS COPIES TO: No Primary Care Physician Use by ED only for patient without primary care phys ician ED USE ONLY-Pt.w/o primary Leodan Luna MD [facility] [address] [id number] PROCEDURES: GM LEVEL 4 (Incompl ete) TISSUES: 1. BREAST, NOS - Breast, left, core bx. FINAL DI AGNOSIS Breast, left, core bx.: Ulceration with necrosis and acute inflammat ion with granulation tissue; bacterial colonies and abnormal cells present on the surface. See microscopic examination. GROSS AND MICROSCOPIC DONNA SS EXAMINATION: Location: Breast, left, core bx.. Dimensions and appea margaret: 0.5 x 0.2 x 0.2 cm. Sections: Entirely submitted. Received in formalin are the above designated biopsies. They are composed of yellow-w talat fibrofatty tissue. They are submitted for microscopic examination a s indicated above. MICROSCOPIC EXAMI NATION: Sections of the "Breast, left, core bx." reveal changes of stratifi ed squamous epithelium with adjacent necrosis and granulation tissue. The surface is ulcerated and contains bacterial colonies and atypical a ppearing cells. The cells are present in small groups and do show mitoti c activity. The number of abnormal cells is small and as a result a definitiv e diagnosis cannot be rendered as to the nature of these abnormal cells. Cli nical correlation is necessary. CONTINUED ON NEXT PAGE RUN DATE: 05/19/[address] [facility] *LIVE* PAGE 2 RUN TIME: 1240 Specimen Inquiry RUN USER: INTERFACE SPEC #: [id number] PATIENT: QI BALL #[id number] (Continued)--------- --- POST-OP DIAGNOSIS None given PRE-OP DIAGNOSIS Breast cancer? REVIEWED BY: WD Signed SIGNATURE ON FILE Rundell,Brittney M MD 05/19/19 1240 END OF REPORT - DUP VEIN [id number] 20:58:00 Name: QI BALL [facility] : 1945 Age/S: 74 / F [address] [place] [address] Unit #: [id number] Loc: [place] [address] Phys: Leodan Sweeney MD Acct: [id number] Dis Date: Status: REG CLI PHONE #: [phone] Exam Date: 05/13/2019 174 FAX #: [phone] Reason: DVT. EXAMS: CPT CODE: [id number] [facility] [place] [id number] PROCEDURE: BILATERAL LOWER EXTREMITY VENOUS ULTRASOUND INDICATION: Lower extremity edema COMPARISON: None. TECHNIQUE: Sonographic evaluation of the bilateral lower extremity veins was performed using high resolution B-mode, pulse and color Doppler imaging. FINDINGS: RIGHT: The common femoral, femoral, popliteal and visualized calf veins are patent. Posterior tibial vein not well visualized due to body habitus and edema. Normal venous waveforms. The saphenofemoral junction is unremarkable. LEFT: The common femoral, femoral, popliteal and visualized calf veins are patent. Normal venous waveforms. The saphenofemoral junction is unremarkable. IMPRESSION: No deep venous thrombosis. SL: EG-H at 2057 Reported and signed by: Zheng Chirinos M.D. CC: Leodan Sweeney MD Technologist: Mary Rico RDMS (AB) (OB) Trnscb Date/Time: 05/13/2019 (2057) RainerETG Orig Print D/T: S: 05/13/2019 (2100) Probe: PAGE 1 Signed Report
[2019-11-24 15:03] LABS: BASOPHILS # (AUTO) 0.1 (0.0-0.1); BASOPHILS % 0.5 % (0.0-1.0); EOSINOPHILS # (AUTO) 0.1 (0.0-0.4); EOSINOPHILS % 0.5 % (0.0-6.0); HEMATOCRIT 44.9 % (34.2-44.1); HEMOGLOBIN 14.3 g/dL (12.0-16.0); LYMPHOCYTES % 5.9 % (18.0-39.1); MEAN CORPUSCULAR HGB CONC 31.8 g/dL (31-35); MEAN CORPUSCULAR VOLUME 94.1 fL (81-99); MONOCYTES # (AUTO) 1.4 (0.2-0.8); NEUTROPHILS # (AUTO) 14.6 (2.1-6.9); NEUTROPHILS % 84.6 % (38.7-80.0); PLATELET COUNT 399 x10e3/uL (140-360); RED BLOOD COUNT 4.77 x10e6/uL (3.6-5.1); RED CELL DISTRIBUTION WIDTH 13.1 % (11.7-14.4)
[2019-11-24 15:22] LABS: ALANINE AMINOTRANSFERASE 13 IU/L (0-55); ALBUMIN 3.2 g/dL (3.5-5.0); ALBUMIN/GLOBULIN RATIO 0.9 (0.8-2.0); ALKALINE PHOSPHATASE 94 IU/L (40-150); ANION GAP 16.1 mmol/L (8-16); BLOOD UREA NITROGEN 41 mg/dL (7-26); BUN/CREATININE RATIO 49 (6-25); CALCIUM 9.6 mg/dL (8.4-10.2); CARBON DIOXIDE 23 mmol/L (22-29); CHLORIDE 102 mmol/L (98-107); CREATININE, SERUM 0.84 mg/dL (0.57-1.11); EST GLOMERULAR FILTRATION RATE > 60 ML/MIN (60-); GLUCOSE 100 mg/dL (74-118); SODIUM 135 mmol/L (136-145)
[2019-11-24 15:28] LABS: POTASSIUM 6.1 mmol/L (3.5-5.1)
[2019-11-24] MEDS ORDERED: SODIUM BICARBONATE 8.4% 50 ML VIAL IV STA (16:02)
[2019-11-24] MEDS ORDERED: DEXTROSE 50% SYRINGE 50 ML IV ONE (16:10)
[2019-11-24] MEDS ORDERED: CALCIUM GLUCONATE 10% INJ 0.465 MEQ/ML VIAL ONE (16:11)
[2019-11-24] MEDS ORDERED: SOD POLYSTYRENE SULFONATE SUSP 15 GM/60 ML BTL ONE (16:11)
[2019-11-24] MEDS ORDERED: CALCIUM GLUCONATE 10% INJ 4.65 MEQ in SODIUM CHLORIDE 0.9% 50ML 50 ML IV ONE (16:15)
[2019-11-24] MEDS ORDERED: SOD POLYSTYRENE SULFONATE SUSP 15 GM/60 ML BTL PO ONE (16:15)
[2019-11-24] MEDS ORDERED: INSULIN REGULAR, HUMAN 100 UNIT/1 ML 3ML VIAL IV ONE (16:15)
[2019-11-24] MEDS ORDERED: SODIUM BICARBONATE 8.4% INJ 50 ML SYR IV ONE (16:15)
--- NOTE | 2019-11-24 16:30 | NUR ---
LARGE WOUND TO R BREAST FROM CANCER, NOTED DRESSINGS TO BILATERAL LOWER EXTREMITIES. PT REPORTS SHE [facility]ES [facility] FOR [facility]LY [facility]BR[facility].
--- NOTE | 2019-11-24 17:56 | NUR ---
CHANGED DRESSING TO LEFT BREAST, MALORDOUS GREEN PURULENT DRAINAGE NOTED. WITH MULTIPLE MASSES. ABD PAD APPLIED WITH PAPER TAPE.
--- NOTE | 2019-11-24 18:10 | NUR ---
NURSING REPORT GIVEN WILLIAM PRUETT.
--- NOTE | 2019-11-24 18:49 | NUR ---
Received patient via Stretcher. Alert and oriented. Assisted to bed. No complaint at this time. Merry cath accessed by ED. Patient states she did not had any chemotherapy treatment yet. Charge nurse made aware. Call wang within reached.
[2019-11-24 19:13] LABS: ANION GAP 16.5 mmol/L (8-16); BLOOD UREA NITROGEN 39 mg/dL (7-26); BUN/CREATININE RATIO 45 (6-25); CALCIUM 9.5 mg/dL (8.4-10.2); CARBON DIOXIDE 26 mmol/L (22-29); CHLORIDE 103 mmol/L (98-107); CREATININE, SERUM 0.87 mg/dL (0.57-1.11); EST GLOMERULAR FILTRATION RATE > 60 ML/MIN (60-); GLUCOSE 91 mg/dL (74-118); POTASSIUM 4.5 mmol/L (3.5-5.1); SODIUM 141 mmol/L (136-145)
[2019-11-24 20:04] VITALS: BP 94/57
[2019-11-24 20:06] VITALS: BP 94/57
[2019-11-24] MEDS ORDERED: SODIUM CHLORIDE 0.9% 250ML 250 ML ONE (20:27)
--- NOTE | 2019-11-24 20:38 | NUR ---
Dr. Austin Chavez made aware of lactic acid result. New orders received.
[2019-11-24] MEDS: CEFEPIME 1GM/NS 0.9% 50 ML 50 ML IV SCH (20:50)
[2019-11-24 20:59] VITALS: BP 94/57
[2019-11-24] MEDS: VANCOMYCIN 1GM/NS 250 ML 250 ML IV SCH (21:09)
[2019-11-24] MEDS ORDERED: CEFTRIAXONE SOD 1 GM/NS 50 ML 50 ML IV ONE (21:15)
[2019-11-24 21:19] LABS: CLARITY,URINE SL CLOUDY (CLEAR); COLOR,URINE STRAW (YELLOW); LEUKOCYTE ESTERASE ,URINE NEGATIVE (NEGATIVE); NITRITE,URINE NEGATIVE (NEGATIVE); PROTEIN,URINE DIPSTICK NEGATIVE (NEGATIVE)
[2019-11-24 21:20] LABS: BILIRUBIN,URINE NEGATIVE (NEGATIVE); KETONES,URINE 1+ (NEGATIVE); URINE UROBILINOGEN 0.2 mg/dL (0.2 - 1)
[2019-11-24] MEDS ORDERED: SODIUM CHLORIDE 0.9% 1000ML 1,000 ML IV STA (21:27)
[2019-11-24 21:32] LABS: BACTERIA,URINE MODERATE /HPF; EPITHELIAL CELLS,URINE FEW /LPF
[2019-11-24 21:33] LABS: HYALINE CASTS 0-1 (0-1)
--- NOTE | 2019-11-24 23:00 | NUR ---
Call received from ER that patient needs blood culture. Antibiotics was already started. ED staff states to still do blood culture x2.
[2019-11-25] VITALS (7 sets, daily range): BP systolic 105–136; BP diastolic 50–59
[2019-11-25] MEDS: ACETAMINOPHEN 325 MG TAB PO PRN (01:16)
--- NOTE | 2019-11-25 07:20 | NUR ---
PATIENT IN BED RESTING WITH NO DISTRESS. REDNESS AND SWELLING TO LOWER EXTREMITIES MOSTLY TO LEFT FOOT WITH SOME OPEN BLISTERS, DRESSING TO LEFT FOOT AND LEFT BREAST WITH MODERATE AMOUNT OF DRAINAGE. BED IN LOWER POSITION, CALL LIGHT AT REACH.
--- NOTE | 2019-11-25 11:26 | NUR ---
PATIENT ASSISTED TO THE BED SIDE COMMODE AND BACK TO BED. VOIDED LARGE AMOUNT OF YELLOW URINE AND HAD A BM. CALL LIGHT AT REACH.
--- NOTE | 2019-11-25 15:50 | NUR ---
DRESSING CHANGED TO LEFT BREAST AND LEFT FOOT. SITTING UP IN BED TALKING TO DOCTOR. CALL LIGHT AT REACH.
[2019-11-25] MEDS: CEFEPIME 1GM/NS 0.9% 50 ML 50 ML IV SCH (18:25)
[2019-11-25] MEDS: VANCOMYCIN 1GM/NS 250 ML 250 ML IV SCH (23:39)
[2019-11-26] VITALS (7 sets, daily range): BP systolic 97–143; BP diastolic 53–63
[2019-11-26] MEDS: ACETAMINOPHEN 325 MG TAB PO PRN ×2 (00:12→15:31)
[2019-11-26] MEDS: CEFEPIME 1GM/NS 0.9% 50 ML 50 ML IV SCH (18:33)
--- NOTE | 2019-11-26 19:25 | NUR ---
Patient visited in room during nursing rounds. Patient alert and oriented x3. Ambulatory with assist (cane and 1 person assist) prn. BLE elevated with pillow. Right leg covered with dressing and coban. Left breast wound covered with abd pads (C/D/I). On IV antibiotic treatment. Call wang within reach. Will monitor pt closely.
--- NOTE | 2019-11-26 22:00 | NUR ---
Report given to Cassandra (retail shift leader RN) who will take over care for patient.
[2019-11-26] MEDS: VANCOMYCIN 1GM/NS 250 ML 250 ML IV SCH (22:49)
[2019-11-27] VITALS (8 sets, daily range): BP systolic 99–119; BP diastolic 49–55
--- NOTE | 2019-11-27 07:24 | NUR ---
REPORT GIVEN TO AM NURSE.
--- NOTE | 2019-11-27 07:30 | NUR ---
PATIENT IN BED RESTING WITH EYES CLOSED, NO DISTRESS NOTED. DRESSING IN PLACE TO LEFT FOOT AND LEFT BREAST. BED IN LOWER POSITION, CALL LIGHT AT REACH.
--- NOTE | 2019-11-27 10:40 | NUR ---
Pt. expressed no spiritual or emotional concerns at this time. [employer] provided hospitality and information on how to reach chicken handler, if needed. No need to follow at this time. TAMI FLORES [facility] O: [phone]
--- NOTE | 2019-11-27 11:05 | NUR ---
DRESSING CHANGED TO LEFT BREAST. PATIENT IN BED WITH CALL LIGHT AT REACH.
--- NOTE | 2019-11-27 11:26 | NUR ---
BPCI LETTER GIVEN TO PATIENT
[2019-11-27] MEDS: ACETAMINOPHEN 325 MG TAB PO PRN (11:56)
--- NOTE | 2019-11-27 15:31 | NUR ---
WOUND CARE STAFF AT BED SIDE, NEW ORDER RECEIVED.
--- NOTE | 2019-11-27 18:12 | NUR ---
CALL PLACED TO [facility] [employer] [employer], MESSAGE LEFT TO PROVIDE HOSPITAL WITH HOME MEDICATION LIST.
[2019-11-27] MEDS: CEFEPIME 1GM/NS 0.9% 50 ML 50 ML IV SCH (18:30)
--- NOTE | 2019-11-27 20:00 | NUR ---
RECEIVED REPORT FROM 7AM NURSE, PATIENT RESTING IN BED, NO DISTRESS NOTED. DRESSING REMAIN INTACT TO HER LEFT UPPER CHEST AND LEFT LEG. CALL LIGHT REMAIN IN REACH. WILL CONTINUE TO MONITOR.
[2019-11-27] MEDS: VANCOMYCIN 1GM/NS 250 ML 250 ML IV SCH (20:22)
[2019-11-28] VITALS (8 sets, daily range): BP systolic 99–119; BP diastolic 49–62
--- NOTE | 2019-11-28 03:23 | NUR ---
CONTINUE RESTING, NO DISTRESS. CALL LIGHT IN REACH.
[2019-11-28 06:20] LABS: BASOPHILS # (AUTO) 0.1 (0.0-0.1); BASOPHILS % 0.7 % (0.0-1.0); EOSINOPHILS # (AUTO) 0.2 (0.0-0.4); EOSINOPHILS % 2.3 % (0.0-6.0); HEMATOCRIT 36.1 % (34.2-44.1); HEMOGLOBIN 11.6 g/dL (12.0-16.0); LYMPHOCYTES % 9.4 % (18.0-39.1); MEAN CORPUSCULAR HEMOGLOBIN 30.1 pg (28-32); MEAN CORPUSCULAR HGB CONC 32.1 g/dL (31-35); MEAN CORPUSCULAR VOLUME 93.5 fL (81-99); MONOCYTES # (AUTO) 1.1 (0.2-0.8); MONOCYTES % 10.2 % (4.4-11.3); NEUTROPHILS # (AUTO) 8.2 (2.1-6.9); NEUTROPHILS % 76.8 % (38.7-80.0); PLATELET COUNT 359 x10e3/uL (140-360); RED BLOOD COUNT 3.86 x10e6/uL (3.6-5.1); RED CELL DISTRIBUTION WIDTH 13.4 % (11.7-14.4)
--- NOTE | 2019-11-28 06:32 | NUR ---
wound care done to left breast area, patient tolerated well. no complaints of pain. Dressing change to right upper chest poc.
[2019-11-28 06:44] LABS: ANION GAP 10.8 mmol/L (8-16); BLOOD UREA NITROGEN 16 mg/dL (7-26); BUN/CREATININE RATIO 26 (6-25); CALCIUM 8.3 mg/dL (8.4-10.2); CARBON DIOXIDE 27 mmol/L (22-29); CHLORIDE 105 mmol/L (98-107); CREATININE, SERUM 0.61 mg/dL (0.57-1.11); EST GLOMERULAR FILTRATION RATE > 60 ML/MIN (60-); GLUCOSE 93 mg/dL (74-118); POTASSIUM 3.8 mmol/L (3.5-5.1); SODIUM 139 mmol/L (136-145)
--- NOTE | 2019-11-28 07:02 | NUR ---
REPORT GIVEN TO AM NURSE, PATIENT CONTINUE RESTING IN BED, NO DISTRESS NOTED. DRESSINGS REMAIN INTACT.
--- NOTE | 2019-11-28 08:43 | NUR ---
WOUND CARE CONSULT FOR 74 YO FEMALE HX OF CANCER,CELLULITIS LE CONSTANTIN 14 ON MODERATE PUP STATUS AND INTERVENTIONS AND ALTERNATING PRESSURE MATTRESS LABS: WBC-17.20 HGB_14.3 GLUCOSE-91 SKIN ASSESSMENT COMPLETE PATIENT PRESENTS WITH LEFT BREAST CANCERS LESION GENERALIZED RLE DRY NEWLY HEALED AREA LLE WITH +3 PITTING EDEMA AND ISCHEMIC ULCERATION 11CM X16CM X.1CM BILATERAL BUTTOCKS STAGE 1 4CM X4CM RECOMMENDATIONS: NURSING TO CONTINUE TO MAINTAIN MODERATE PUP STATUS AND INTERVENTIONS AND ALTERNATING PRESSURE MATTRESS NURSING TO CONTINUE TO ASSIST PATIENT OUT OF BED FOR MEALS AND MUCH TOLERATED NURSING TO CONTINUE TO ASSIST PATIENT NEEDED WITH MEALS AND NUTRITIONAL SUPPLEMENTS TO ENSURE PROPER REQUIREMENTS FOR HEALING NURSING TO CONTINUE TO OFFLOAD FEET AND HEELS NEEDED WITH PILLOW SUSPENSION WHEN IN BED NURSING TO CLEAN LLE WITH NORMAL SALINE DAILY AND APPLY BACTROBAN OINTMENT AND COVER WITH ABD PAD SECURE WITH LIGHT KERLIX WRAP NURSING TO CLEAN LEFT BREAST NECROTIC LESION WITH NORMAL SALINE DAILY AND APPLY BETADINE MOIST DRE COVER WITH 4X4 AND ABD PADS SECURE WITH TAPE NURSING TO CLEAN RLE WITH NORMAL NON ABRASIVE SOAP DAILY AND APPLY VENELEX OINTMENT AND LEAVE OPEN TO AIR NURSING TO CLEANBILATERAL BUTTOCK WITH NORMAL SALINE DAILY AND APPLY VENELEX OINTMENT AND ALLEVYN FOAM DRESSING
[2019-11-28] MEDS: ACETAMINOPHEN 325 MG TAB PO PRN (08:50)
--- NOTE | 2019-11-28 12:09 | NUR ---
Spoke with Dr. Chavez to report positive DVT results and received orders for Lovenox 1mg/kg SQ q12hrs.
[2019-11-28] MEDS: BALSAM PERU/CASTOR OIL 60 GM OINT...G. TP SCH (12:10)
[2019-11-28] MEDS: ENOXAPARIN SODIUM INJ 100 MG/ML SYR SC SCH ×2 (12:10→21:00)
[2019-11-28] MEDS: MUPIROCIN 2% OINT 22 GM TUBE TOP SCH (12:10)
[2019-11-28] MEDS: CEFEPIME 1GM/NS 0.9% 50 ML 50 ML IV SCH (17:36)
[2019-11-28] MEDS: VANCOMYCIN 1GM/NS 250 ML 250 ML IV SCH ×2 (19:00→20:02)
[2019-11-29] VITALS (9 sets, daily range): BP systolic 104–125; BP diastolic 55–62
--- NOTE | 2019-11-29 01:46 | NUR ---
Pt. remains in stable condition without complaint of pain or nausea; Right chest portacath C/D/I; +2 edema to left leg; Telemetry # [address]; VSS; Will continue to monitor.
--- NOTE | 2019-11-29 05:02 | NUR ---
Medication error noted; Reported to Dr. Joe Chavez; Orders received to obtain stat random vancomycin level; labs drawn and taken to lab at this time.
--- NOTE | 2019-11-29 05:51 | NUR ---
Random Vancomycin level 21.5; Dr. Joe Chavez notified and order to hold Vancomycin received at this time.
--- NOTE | 2019-11-29 07:17 | NUR ---
Patient remains in stable condition; Report given to Chapis Mays RN
--- NOTE | 2019-11-29 07:20 | NUR ---
Received bedside shift report. Patient asleep but easily aroused. Denies pain no visible signs of distress noted. Call light within reach.
[2019-11-29] MEDS: ACETAMINOPHEN 325 MG TAB PO PRN ×2 (09:47→19:44)
[2019-11-29] MEDS: ENOXAPARIN SODIUM INJ 100 MG/ML SYR SC SCH ×2 (09:47→21:45)
[2019-11-29] MEDS: MUPIROCIN 2% OINT 22 GM TUBE TOP SCH (13:08)
[2019-11-29] MEDS: BALSAM PERU/CASTOR OIL 60 GM OINT...G. TP SCH (13:08)
--- NOTE | 2019-11-29 14:03 | NUR ---
BM X1 Large formed/soft brown Addendum: 11/29/19 at 1404 by AVTAR RODGERS RN Amended: Links added.
--- NOTE | 2019-11-29 16:15 | NUR ---
Nutrition Screen Note RD Recommendation for Physician: - Continue current diet order Plan of Care: RD following, monitoring for tolerance and adequacy Nutrition reason for involvement: LOS Primary Diagnose(s): cellulitis PMH: none indicated in chart Ht: 61in Wt: 200lb BMI: 37.8kg/m2 IBW: 105lb +/- 10% RD Assessment: (11/28) Chart reviewed. Labs and meds reviewed. 74yo F, who was admitted for cellulitis. Visited pt in the room. Pt reported good appetite with 75-100% recorded meal intake. Pt denied any nausea or vomiting. No chewing or swallowing difficulty noted. Weight has been stable, per pt. No other concern at this time. Will continue to monitor and follow. Current Diet: cardiac diet Malnutrition Evaluation (11/28) The patient does not meet criteria for a specified degree of malnutrition at this time. Will re-evaluate at follow-up as appropriate. Diet Education Needs Assessment: Diet education not indicated. Nutrition Care Level: low Signed: Jessika Rome, MS, RD, LD
[2019-11-29] MEDS: CEFEPIME 1GM/NS 0.9% 50 ML 50 ML IV SCH (18:34)
--- NOTE | 2019-11-29 19:15 | NUR ---
Bedside shift report given to night nurse. Patient resting in bed at this time. Verbalizes pain in left lower extremity. PRN acetaminophen to be given. Call light within reach.
--- NOTE | 2019-11-29 21:10 | NUR ---
Repositioned.Assessment done.no resp.distress.no pain voiced.bed locked and in lowest position.phone and call light within reach.instructed to call for assistance as needed.
[2019-11-30] VITALS (8 sets, daily range): BP systolic 106–111; BP diastolic 50–68
[2019-11-30] MEDS: ACETAMINOPHEN 325 MG TAB PO PRN ×2 (04:50→13:22)
--- NOTE | 2019-11-30 04:51 | NUR ---
Assisted to use bedside commode.voided.B.lower extremity pain voiced 01/27 .tylenol 650 mg po given.
--- NOTE | 2019-11-30 07:02 | NUR ---
REPORT GIVEN TO ONCOMING RN.STABLE CONDITION.
--- NOTE | 2019-11-30 08:00 | NUR ---
PT RESTING IN BED. RESP EVEN WITHOUT DISTRESS. PERICARE GIVEN. DRSG TO THE LLE IS C/D/I.
[2019-11-30] MEDS: ENOXAPARIN SODIUM INJ 100 MG/ML SYR SC SCH (09:48)
--- NOTE | 2019-11-30 13:00 | NUR ---
DR. CHARITO MCKEON AT BEDSIDE. NEW ORDER NOTED.
[2019-11-30] MEDS: MUPIROCIN 2% OINT 22 GM TUBE TOP SCH (15:30)
[2019-11-30] MEDS: BALSAM PERU/CASTOR OIL 60 GM OINT...G. TP SCH (15:30)
--- NOTE | 2019-11-30 15:30 | NUR ---
CHANGED DRSG TO THE LEFT BREAST AND DRSG TO THE LLE. PT TOLERATED WELL.
--- NOTE | 2019-11-30 17:30 | NUR ---
NOTIFIED DR. Joe MCKEON OF RANDOM VANCOMYCIN 5.5, NEW ORDER NOTED AND CARRIED OUT.
[2019-11-30] MEDS ORDERED: VANCOMYCIN 1GM/NS 250 ML 250 ML IV SCH (17:45)
[2019-11-30] MEDS: CEFEPIME 1GM/NS 0.9% 50 ML 50 ML IV SCH (18:03)
[2019-11-30] MEDS: RIVAROXABAN 15 MG TABLET PO SCH (18:03)
--- NOTE | 2019-11-30 19:41 | NUR ---
Received change of shift report from AM nurse. Walking rounds completed.
[2019-11-30] MEDS: VANCOMYCIN 1GM/NS 250 ML 250 ML IV SCH (21:00)
[2019-12-01] VITALS: BP 102/55
--- NOTE | 2019-12-01 | NUR ---
Patient in bed. Denies pain at this time. Continue monitor.
[2019-12-01] MEDS: ACETAMINOPHEN 325 MG TAB PO PRN (01:50)
[2019-12-01 04:00] VITALS: BP 105/57
--- NOTE | 2019-12-01 07:49 | NUR ---
Dressing change done to left breast. Patient tolerated well.
[2019-12-01 08:00] VITALS: BP 120/59
[2019-12-01 08:30] VITALS: BP 120/59
[2019-12-01] MEDS: VANCOMYCIN 1GM/NS 250 ML 250 ML IV SCH (09:00)
[2019-12-01] MEDS: BALSAM PERU/CASTOR OIL 60 GM OINT...G. TP SCH (09:00)
[2019-12-01] MEDS: MUPIROCIN 2% OINT 22 GM TUBE TOP SCH (09:00)
[2019-12-01] MEDS: RIVAROXABAN 15 MG TABLET PO SCH ×2 (09:00→17:15)
--- NOTE | 2019-12-01 11:04 | NUR ---
DR. Joe MCKEON AT BEDSIDE.
[2019-12-01 12:00] VITALS: BP 106/59
--- NOTE | 2019-12-01 14:21 | NUR ---
PT SIGNED CHOICE IMM FOR FOCUSED CARE [facility]NETH FILED IN CHART, CALLED DAUGHTER AND LET KNOW WHAT SHE CHOSE, COMPLETED PAPERWORK, RTF AND COVID FORM FAXED TO FACILITY. CALLED ADMISSIONS AND GAVE SSN [id number], NOT ON CHART
[2019-12-01 15:51] VITALS: BP 111/52
--- NOTE | 2019-12-01 16:15 | NUR ---
CALLED [facility]. REPORT CALLED TO TONY WYATT LVN.
[2019-12-01] MEDS: CEFEPIME 1GM/NS 0.9% 50 ML 50 ML IV SCH (17:15)
--- NOTE | 2019-12-01 17:30 | NUR ---
DRSG CHANGE TO THE LLE DONE. SKIN RAMY, NO DRAINAGE PRESENT. CLEANSE WITH NS APPLIED OINT COVER LIGHTLY WITH KERLIX. PT TOLERATED WELL.
--- NOTE | 2019-12-01 18:15 | NUR ---
[facility] HERE TO TRANSPORT PT TO REHAB. PT AAO X 3. IN STABLE CONDITION. PT WAS TALKING TO DAUGHTER AND NOTIFIED SHE WAS BEING TRANSFERED. PT HAS ALL PERSONAL BELONGINGS.
== END 2019-12-01 18:13 | DRG 872 ==
LOC: ER 12:31 → ERHOLD 15:57 → MED/SURG3 18:49
DX: A41.9 Sepsis, unspecified organism (principal); L03.116 Cellulitis of left lower limb; L03.115 Cellulitis of right lower limb; I82.4Z2 Acute embolism and thrombosis of unspecified deep veins of left distal lower extremity; R65.20 Severe sepsis without septic shock; E66.9 Obesity, unspecified; Z68.37 Body mass index [BMI] 37.0-37.9, adult; C50.919 Malignant neoplasm of unspecified site of unspecified female breast
CPT/HCPCS: 36415; 80048; 80053; 80202; 81001; 83605; 84132; 85025; 87040; 87086; 93005; 93970; 99251; 99284; J0610; J0692; J0696; J1650; J1817; J3370; J7030; J7050; J7799